=== PATIENT | female | born 1965 | race African-American/Black ===

== ENCOUNTER 2017-10-15 00:26 | Emergency (ER) | payer SELFPAY ==
--- NOTE | 2017-10-15 00:42 | ER Document Report ---
ED Cardiac - General Stated Complaint: CHEST PAIN/WEAKNESS Time Seen by Provider: 10/15/17 00:42 Mode of Arrival: Ambulatory Information source: Patient Notes: 52 yo non smoker, non dm, heart murmur, overweight, hypertension (should would take 1 of spouses Lisinopril 20/hctz12.5) female woke up suddenly and the sensation of hot all body, with legs on fire, felt out of it- in a fog, started breathing heavy at 00:12. No sweating. Went out to daughter, no chest pain at the time, was shaking, eyes were red and watery, breathing heavily, gave her a 81 mg ASA, went to bedroom to get her ready to come to ER, daughter took BP and it was 203/[address] to ER same symptoms heavy breathing, shaking. When got out of the car got wheelchair, as she got out of the car she felt lightheaded, helped her to the WC. At this time has some burning, heaviness between her breasts 2.5/5, which started sometime after checking in at triage and laying down in the bed. This week feeling heavy in mid chest after eating ( same type pain), like food was sticking, lasting 5-10 minutes, several times this week. Burping or drinking water would make it better. Eating brought in on. No nausea. Surguries: C section Still has menses. No hx GERD, gastritis, colonoscopy or EGD, PE or DVT. No PCP in 4 years. FH: No CAD. - Related Data Allergies/Adverse Reactions: No Known Allergies Allergy (Unverified 10/15/17 03:00) Past Medical History - General Information source: Patient - Social History Smoking Status: Never Smoker Frequency of alcohol use: None Drug Abuse: None Lives with: Family Family History: Reviewed & Not Pertinent. denies: CAD - Past Medical History Cardiac Medical History: Reports: Hx Hypertension Surgical Hx: Negative Review of Systems - Review of Systems Constitutional: No symptoms reported EENT: No symptoms reported Cardiovascular: See HPI Respiratory: No symptoms reported Gastrointestinal: See HPI Genitourinary: No symptoms reported Female Genitourinary: No symptoms reported Musculoskeletal: No symptoms reported Skin: No symptoms reported Hematologic/Lymphatic: No symptoms reported Neurological/Psychological: No symptoms reported Physical Exam - Vital signs Vitals: Temp Pulse Resp BP Pulse Ox 97.5 F 72 20 204/101 H 100 10/15/17 00:38 10/15/17 00:38 10/15/17 00:38 10/15/17 00:38 10/15/17 00:38 Interpretation: Normal - General General appearance: Appears well, Alert In distress: None - HEENT Head: Normocephalic, Atraumatic Eyes: Normal Pupils: PERRL - Respiratory Respiratory status: No respiratory distress Chest status: Nontender Breath sounds: Normal Chest palpation: Normal - Cardiovascular Rhythm: Regular Heart sounds: Normal auscultation Murmur: No - Abdominal Inspection: Normal Distension: No distension Bowel sounds: Normal Tenderness: Nontender. No: Tender, Harrell's sign Organomegaly: No organomegaly - Back Back: Normal, Nontender. No: Tender - Extremities General upper extremity: Normal inspection, Nontender, Normal color, Normal ROM , Normal temperature General lower extremity: Normal inspection, Nontender, Normal color, Normal ROM , Normal temperature, Normal weight bearing. No: Vandana's sign - Neurological Neuro grossly intact: Yes Cognition: Normal Orientation: AAOx4 [place] Coma Scale Eye Opening: Spontaneous [place]ela Coma Scale Verbal: Oriented [place] Coma Scale Motor: Obeys Commands [place] Coma Scale Total: 15 Speech: Normal Motor strength normal: LUE, RUE, LLE, RLE Sensory: Normal - Psychological Associated symptoms: Normal affect, Normal mood - Skin Skin Temperature: Warm Skin Moisture: Dry Skin Color: Normal Skin irregularity: negative: Rash Course - Re-evaluation Re-evalutation: 10/15/17 02:[address] dunham who rec. admission to hospitalist observation chest pain, call to dr welch and she wants the 2nd troponin, bring blood pressure down and call her back, she also asked dr. dunham to see the pt. dr dunham wants ekg repeated, 2nd troponin ordered for 4:45. NTG ok to bring BP down. pt states that the chest tightness has waxed and wane while in the ER but worse ambulating to the bathroom down the bush. Heartscore 1. 10/15/17 02:38 diarrhea while in ER, GB US ordered. 10/15/17 03:47 pt has some discomfort again with the 1/2 inch paste NTG, having nurse given 1 more SL before US to see if she needs more past. BP 120/88 10/15/17 03:57 2nd sl ntg not decreasing the pain 10/15/17 04:59 pain 0. bp 118/73. 10/15/17 06:21 dr. dunham reviewed case with me again, and she can be discharged home with hctz 12.5 daily, see dr. rodríguez on monday, will also give the pt referral to cardiology for further testing, and explained that she needs to return to the ER for any reoccurance of the chest painl - Vital Signs Vital signs: Temp Pulse Resp BP Pulse Ox 97.5 F 67 18 126/88 H 97 10/15/17 00:38 10/15/17 06:24 10/15/17 06:24 10/15/17 06:15 10/15/17 06:24 - Laboratory Result Diagrams: 10/15/17 01:00 10/15/17 01:00 Laboratory results interpreted by me: 10/15/17 10/15/17 01:00 01:00 Seg Neutrophils % 41.5 L Chloride 108 H Est GFR ( Amer) 57 L Est GFR (Non-Af Amer) 47 L - EKG Interpretation by Me EKG shows normal: Sinus rhythm Rate: Normal Rhythm: NSR Additional EKG results interpreted by me: 10/15/17 04:55 dr dunham read both ekg's, no change. Discharge - Discharge Clinical Impression: Chest pain Qualifiers: Chest pain type: unspecified Qualified Code(s): R07.9 - Chest pain, unspecified Hypertension Qualifiers: Hypertension type: essential hypertension Qualified Code(s): I10 - Essential ( primary) hypertension Condition: Good Disposition: HOME, SELF-CARE Instructions: Chest Pain of Unclear Cause ([facility]), High Blood Pressure, Requiring Treatment ([facility]), Hydrochlorothiazide ([facility]) Additional Instructions: continue the [address] Gatica office Monday morning for an appointment this week Referral to cardiology Referral to gastroenterology if needed return immediately to the ER if any recurrence of the chest pain Prescriptions: Hydrochlorothiazide 12.5 mg PO DAILY #30 tablet Referrals: REZA RODRÍGUEZ MD [Primary Care Provider] - 10/16/17 KATHI DE LA O MD [ACTIVE STAFF] - 10/16/17 LILIANA DAVIES MD [ACTIVE STAFF] - Follow up as needed
[2017-10-15] MEDS ORDERED: ASPIRIN 81 MG TABLET, CHEWABLE PO ONE (00:45)
[2017-10-15 01:12] LABS: ABSOLUTE BASOPHILS # (AUTO) 0.1 10^3/uL (0.0-0.2); ABSOLUTE EOSINOPHILS # (AUTO) 0.2 10^3/uL (0.0-0.6); ABSOLUTE LYMPHOCYTES (AUTO) 2.3 10^3/uL (0.5-4.7); ABSOLUTE MONOCYTES (AUTO) 0.5 10^3/uL (0.1-1.4); ABSOLUTE NEUT (AUTO) 2.2 10^3/uL (1.7-8.2); BASOPHILS % (AUTO) 1.1 % (0-2); EOSINOPHILS % (AUTO) 3.5 % (0-6); HEMATOCRIT 36.5 % (36.0-47.0); HEMOGLOBIN 12.7 g/dL (12.0-15.5); HGB HCT DIFFERENCE 1.6; LYMPHOCYTES % (AUTO) 43.6 % (13-45); MEAN CORPUSCULAR HEMOGLOBIN 32.6 pg (27.0-33.4); MEAN CORPUSCULAR HGB CONC 34.8 g/dL (32.0-36.0); MEAN CORPUSCULAR VOLUME 94 fl (80-97); MONOCYTES % (AUTO) 10.3 % (3-13); RED BLOOD COUNT 3.91 10^6/uL (3.72-5.28); RED CELL DISTRIBUTION WIDTH 13.6 % (11.5-14.0); SEGMENTED NEUTROPHILS % (AUTO) 41.5 % (42-78); WHITE BLOOD COUNT 5.2 10^3/uL (4.0-10.5)
[2017-10-15 01:22] LABS: ALANINE AMINOTRANSFERASE 25 U/L (9-52); ALBUMIN 4.1 g/dL (3.5-5.0); ALKALINE PHOSPHATASE 58 U/L (38-126); ANION GAP 11 (5-19); ASPARTATE AMINO TRANSFERASE 17 U/L (14-36); BILIRUBIN,DIRECT 0.1 mg/dL (0.0-0.4); BILIRUBIN,TOTAL 0.2 mg/dL (0.2-1.3); BLOOD UREA NITROGEN 16 mg/dL (7-20); CALCIUM 9.2 mg/dL (8.4-10.2); CARBON DIOXIDE 22 mmol/L (22-30); CHLORIDE 108 mmol/L (98-107); CREATINE KINASE 103 U/L (30-135); GLUCOSE 105 mg/dL (75-110); POTASSIUM 3.8 mmol/L (3.6-5.0); TOTAL PROTEIN 7.2 g/dL (6.3-8.2)
[2017-10-15 01:34] LABS: CREATINE KINASE MB 0.41 ng/mL (<4.55)
[2017-10-15 01:35] LABS: TROPONIN I < 0.012 ng/mL
--- NOTE | 2017-10-15 01:59 | RADIOLOGY REPORT (SQ) ---
EXAM DESCRIPTION: CHEST SINGLE VIEW CLINICAL HISTORY: chest pain COMPARISON: None. FINDINGS: Single frontal view of the chest. Leads overlie the chest. The cardiomediastinal silhouette has normal size and contour. No consolidation, pneumothorax, or pleural effusion. No displaced rib fractures identified. Upper abdominal soft tissues are unremarkable. IMPRESSION: 1. No acute pulmonary process identified.
[2017-10-15] MEDS: NITROGLYCERIN 0.4 MG/TAB 25 TAB/BOTTLE SL PRN ×2 (02:27→03:47)
[2017-10-15] MEDS ORDERED: NITROGLYCERIN 2% OINTMENT 1 GM PACKET TP ONE (03:04)
[2017-10-15] MEDS ORDERED: ACETAMINOPHEN 325 MG TABLET PO ONE (03:57)
--- NOTE | 2017-10-15 05:25 | RADIOLOGY REPORT (SQ) ---
EXAM DESCRIPTION: U/S ABDOMEN LIMITED W/O DOP CLINICAL HISTORY: retrosternal cp and diarrhea COMPARISON: None. TECHNIQUE: Real-time sonographic images of the right upper abdomen were obtained using a curved multihertz transducer. FINDINGS: The visualized portions of the pancreas are unremarkable. Aorta measures 2.7 cm in greatest dimension. IVC is unremarkable. Liver has normal echogenicity. No intrahepatic mass identified. Common bile duct measures 0.4 cm. Hepatopedal flow in the portal vein. The gallbladder has a normal appearance. No gallstones identified. No wall thickening or pericholecystic fluid. The right kidney measures 10.0 cm in length. No hydronephrosis, solid renal mass, or shadowing calculi. IMPRESSION: 1. No gallstones identified. 2. 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 Follow-up in 5 years for continued surveillance recommended.
[2017-10-15] MEDS ORDERED: HYDROCHLOROTHIAZIDE 12.5 MG CAPSULE PO ONE (06:14)
[2017-10-15 06:42] VITALS: BP 128/87
--- NOTE | 2017-10-15 11:47 | EKG REPORT ---
SEVERITY:- ABNORMAL ECG - SINUS RHYTHM PROBABLE LEFT ATRIAL ABNORMALITY NONSPECIFIC T ABNORMALITIES, LATERAL LEADS : Confirmed by: Netta Alvarenga 15-Oct-2017 11:46:30
--- NOTE | 2017-10-15 11:47 | EKG REPORT ---
SEVERITY:- BORDERLINE ECG - SINUS RHYTHM BORDERLINE T WAVE ABNORMALITIES : Confirmed by: Netta Alvaernga 15-Oct-2017 11:46:17
== END 2017-10-15 06:42 | disposition home or self-care (01) ==
LOC: ER 00:26
DX: R07.9 Chest pain, unspecified (principal); I10 Essential (primary) hypertension; R53.1 Weakness; R01.1 Cardiac murmur, unspecified; E66.3 Overweight; R42 Dizziness and giddiness; Z79.899 Other long term (current) drug therapy
CPT/HCPCS: 36415; 71010; 76705; 80053; 82550; 82553; 84484; 85025; 93005; 93010; 99285